=== PATIENT | female | born 1935 | race Caucasian/White ===

== ENCOUNTER 2018-04-13 15:07 | Inpatient (IN) | payer OTHER, BC ==
[~2018-04-13] VITALS: Ht 160 cm; Wt 50.5 kg
[~2018-04-13 15:07] MED LIST: ALBUTEROL SULFAT2 MG PO; ALPRAZOLAM0.25 M2 PO; B-121500 MCG SC; CARAFATE1 GM PO; CIPRO500 MG PO; CYANOCOBAL1000 MCG/2 IM; CYANOCOBALAMIN; DULERA 100 MCG/13 GM IH; FOLIC ACID1 MG PO; FUROSEMIDE40 MG PO; LIPITOR80 MG PO; LOMOTIL TABLET1 EACH PO; METOPROLOL TART50 MG PO; OCEAN NASAL 0.645 ML BOTH NARES; POTASSIUM CHLO10 ME3 PO; PREDNISONE5 MG PO; PROAIR HFA8.5 GM IH; PROTONIX40 MG PO; SUCRALFATE1 GM PO; SYNTHROID50 MCG PO; TRAMADOL HCL50 MG PO
[2018-04-13 16:03] LABS: BASOPHIL (%) 0.4 % (0-1); BASOPHIL COUNT 0.1 K/uL (0-0.1); EOSINOPHIL (%) 0.1 % (0-5); HEMOGLOBIN 7.2 G/DL (11.9-15.5); IMMATURE GRANULOCYTE (%) 0.8 % (0.0-0.7); LYMPHOCYTE COUNT 0.8 K/uL (1.0-2.8); MCH 18.1 PG (29.0-34.0); MCHC 27.7 G/DL (30.0-36.0); MCV 65.5 FL (83-99); MONOCYTE (%) 7.9 % (3-12); MONOCYTE COUNT 1.3 K/uL (0-0.8); NEUTROPHIL (%) 85.8 % (45-76); NEUTROPHIL COUNT 14.3 K/uL (1.8-6.4); PLATELET COUNT 750 K/uL (156-360); RBC DIS.WIDTH-CV 21.1 % (11.8-14.6); RBC DIS.WIDTH-SD 47.2 % (39-53); RED BLOOD COUNT 3.97 M/uL (3.80-5.20); WHITE BLOOD COUNT 16.7 K/uL (4.1-10.2)
[2018-04-13 16:08] LABS: ALBUMIN 3.4 g/dL (3.2-4.8); CHLORIDE 94 mEq/L (99-109); SODIUM 135 mEq/L (136-147)
[2018-04-13 16:09] LABS: PTT 30.8 SEC (25-37)
[2018-04-13 16:11] LABS: GLUCOSE 136 mg/dL (70-99); TOTAL PROTEIN 7.6 g/dL (6.4-8.3)
[2018-04-13 16:13] LABS: TOTAL BILIRUBIN 0.7 mg/dL (0.0-1.0)
[2018-04-13 16:14] LABS: ALKALINE PHOSPHATASE 140 IU/L (3-129)
[2018-04-13 16:15] LABS: GFR ESTIMATE (CALCULATED) 57 mL/min/
[2018-04-13 16:16] LABS: AST (GOT) 18 IU/L (2-34); DIRECT BILIRUBIN 0.4 mg/dL (0.0-0.3); UREA NITROGEN (BUN) 9 mg/dL (9-23)
[2018-04-13 16:17] LABS: ALT (GPT) 10 IU/L (3-49)
[2018-04-13 16:18] LABS: LIPASE 36 U/L (1.0-51.0)
[2018-04-13 16:20] LABS: TROP-I INTERPRETATION NEGATIVE; TROPONIN-I < 0.01 ng/mL (0.0-0.30)
[2018-04-13 16:48] LABS: APPEARANCE CLOUDY ((CLEAR)); BILIRUBIN NEGATIVE; BLOOD MODERATE; COLOR AMBER ((YELLOW)); GLUCOSE (STRIP) NEGATIVE; KETONES NEGATIVE; LEUKOCYTES LARGE; NITRITE POSITIVE; PROTEIN (STRIP) 100; SPECIFIC GRAVITY 1.013 (1.000-1.030); UROBILINOGEN 0.2 MG/DL (0.2-1.0)
[2018-04-13 17:17] LABS: EPITHELIAL CELLS 1+ /HPF; WHITE BLOOD CELLS TNTC /HPF (0-5)
[2018-04-13 17:18] LABS: BACTERIA 3+ /HPF; MUCUS TRACE /LPF; UCUL ADDED? YES
[2018-04-13 19:49] LABS: INTER. NORMALIZED RATIO 2.1
[2018-04-13 20:30] VITALS: BP 135/58
[2018-04-13 23:07] LABS: TROP-I INTERPRETATION NEGATIVE; TROPONIN-I 0.01 ng/mL (0.0-0.30)
[2018-04-14] VITALS (15 sets, daily range): BP systolic 89–125; BP diastolic 43–67
[2018-04-14 07:47] LABS: HEMATOCRIT 20.4 % (36.0-46.0); MCH 18.3 PG (29.0-34.0); RBC DIS.WIDTH-SD 50.6 % (39-53); WHITE BLOOD COUNT 14.4 K/uL (4.1-10.2)
[2018-04-14 07:48] LABS: HEMOGLOBIN 5.5 G/DL (11.9-15.5)
[2018-04-14 07:50] LABS: INTER. NORMALIZED RATIO 1.7
[2018-04-14 07:57] LABS: TROP-I INTERPRETATION NEGATIVE; TROPONIN-I 0.02 ng/mL (0.0-0.30)
[2018-04-14 08:03] LABS: ALBUMIN 2.3 G/DL (3.2-4.8); ALKALINE PHOSPHATASE 90 IU/L (3-129); ALT (GPT) 7 IU/L (3-49); AST (GOT) 12 IU/L (2-34); CHLORIDE 106 MEQ/L (99-109); CREATININE 0.7 MG/DL (0.6-1.3); GFR ESTIMATE (CALCULATED) > 59 mL/min/; GLUCOSE 104 mg/dL (70-99); PLAT.SUFFICIENCY INCREASED; PLATELET CLUMPS PRESENT - PLATELET COUNT APPEARS INCREASED; POTASSIUM 3.5 MEQ/L (3.7-5.4); SODIUM 139 MEQ/L (136-147); TOTAL BILIRUBIN 0.5 MG/DL (0.0-1.0); TOTAL PROTEIN 4.8 G/DL (6.4-8.3); UREA NITROGEN (BUN) 6 mg/dL (9-23)
[2018-04-14 08:10] LABS: PLATELET COUNT UNABLE TO REPORT K/uL (156-360)
[2018-04-14 08:15] LABS: THYROTROPIN (TSH) 1.2 MIU/L (0.4-5.5)
[2018-04-14 08:21] LABS: FERRITIN 29 NG/ML (10-291)
[2018-04-14 08:23] LABS: FOLIC ACID (FOLATE) 17.3 NG/ML (5.0-22.0)
[2018-04-14 09:29] LABS: HEMATOCRIT 22.7 % (36.0-46.0); MCHC 26.4 G/DL (30.0-36.0); RBC DIS.WIDTH-CV 21.4 % (11.8-14.6); RBC DIS.WIDTH-SD 50.9 % (39-53); RED BLOOD COUNT 3.34 M/uL (3.80-5.20); WHITE BLOOD COUNT 16.6 K/uL (4.1-10.2)
[2018-04-14 09:30] LABS: PLATELET COUNT 530 K/uL (156-360)
[2018-04-14 17:54] LABS: HEMATOCRIT 29.4 % (36.0-46.0); HEMOGLOBIN 8.7 G/DL (11.9-15.5); MCH 21.2 PG (29.0-34.0); MCHC 29.6 G/DL (30.0-36.0); MCV 71.5 FL (83-99); NRBC (%) 0.1 /100 WBC (0-0); PLATELET COUNT 533 K/uL (156-360); RBC DIS.WIDTH-SD 58.2 % (39-53); RED BLOOD COUNT 4.11 M/uL (3.80-5.20); WHITE BLOOD COUNT 15.9 K/uL (4.1-10.2)
[2018-04-15 04:53] VITALS: BP 137/62
[2018-04-15 07:29] LABS: INTER. NORMALIZED RATIO 1.3
[2018-04-15 07:30] LABS: BASOPHIL (%) 0.2 % (0-1); EOSINOPHIL (%) 0.8 % (0-5); EOSINOPHIL COUNT 0.1 K/uL (0-0.3); HEMATOCRIT 27.9 % (36.0-46.0); HEMOGLOBIN 8.3 G/DL (11.9-15.5); IMMATURE GRANULOCYTE (%) 0.8 % (0.0-0.7); LYMPHOCYTE (%) 8.4 % (15-42); MCHC 29.7 G/DL (30.0-36.0); MCV 70.6 FL (83-99); MONOCYTE (%) 8.4 % (3-12); NEUTROPHIL (%) 81.4 % (45-76); NEUTROPHIL COUNT 9.6 K/uL (1.8-6.4); RBC DIS.WIDTH-CV 22.6 % (11.8-14.6); RBC DIS.WIDTH-SD 57.1 % (39-53); RED BLOOD COUNT 3.95 M/uL (3.80-5.20); WHITE BLOOD COUNT 11.8 K/uL (4.1-10.2)
[2018-04-15 07:32] LABS: PTT 33.4 SEC (25-37)
[2018-04-15 07:59] LABS: PLATELET CLUMPS PRESENT - PLATELET COUNT APPEARS ADEQUATE; PLATELET COUNT UNABLE TO REPORT K/uL (156-360)
[2018-04-15 08:18] LABS: ALBUMIN 2.2 G/DL (3.2-4.8); CHLORIDE 107 MEQ/L (99-109); CREATININE 0.7 MG/DL (0.6-1.3); GFR ESTIMATE (CALCULATED) > 59 mL/min/; GLUCOSE 124 mg/dL (70-99); PHOSPHORUS 1.9 mg/dL (2.5-4.9); POTASSIUM 3.5 MEQ/L (3.7-5.4); SODIUM 140 MEQ/L (136-147); UREA NITROGEN (BUN) 4 mg/dL (9-23)
[2018-04-15 09:00] VITALS: BP 137/61
[2018-04-15 12:00] VITALS: BP 111/55
[2018-04-15 17:00] VITALS: BP 115/57
[2018-04-15 20:32] VITALS: BP 137/62
[2018-04-15 23:31] VITALS: BP 147/63
[2018-04-16 03:56] VITALS: BP 134/68
[2018-04-16 06:32] LABS: HEMATOCRIT 26.5 % (36.0-46.0); HEMOGLOBIN 7.6 G/DL (11.9-15.5); MCH 20.5 PG (29.0-34.0); MCHC 28.7 G/DL (30.0-36.0); MCV 71.6 FL (83-99); RBC DIS.WIDTH-CV 23.1 % (11.8-14.6); RBC DIS.WIDTH-SD 59.1 % (39-53); WHITE BLOOD COUNT 8.5 K/uL (4.1-10.2)
[2018-04-16 06:58] LABS: CHLORIDE 108 MEQ/L (99-109); CREATININE 0.6 MG/DL (0.6-1.3); GFR ESTIMATE (CALCULATED) > 59 mL/min/; GLUCOSE 118 mg/dL (70-99); POTASSIUM 2.8 MEQ/L (3.7-5.4); SODIUM 143 MEQ/L (136-147); UREA NITROGEN (BUN) 7 mg/dL (9-23)
[2018-04-16 08:18] VITALS: BP 147/66
[2018-04-16 08:58] LABS: PLATELET COUNT 483 K/uL (156-360)
[2018-04-16 11:12] VITALS: BP 123/53
[2018-04-16 13:32] LABS: STOOL OCCULT BLD 1ST SPECIMEN NEGATIVE
[2018-04-16 16:08] VITALS: BP 167/77
[2018-04-16 19:36] VITALS: BP 141/67
[2018-04-17 00:24] VITALS: BP 141/63
[2018-04-17 04:16] VITALS: BP 153/70
[2018-04-17 08:24] VITALS: BP 143/67
[2018-04-17 09:36] LABS: BASOPHIL (%) 0.5 % (0-1); EOSINOPHIL (%) 2.3 % (0-5); EOSINOPHIL COUNT 0.2 K/uL (0-0.3); HEMATOCRIT 30.9 % (36.0-46.0); HEMOGLOBIN 8.9 G/DL (11.9-15.5); IMMATURE GRANULOCYTE (%) 0.5 % (0.0-0.7); LYMPHOCYTE (%) 17.3 % (15-42); LYMPHOCYTE COUNT 1.4 K/uL (1.0-2.8); MCH 20.9 PG (29.0-34.0); MCHC 28.8 G/DL (30.0-36.0); MCV 72.5 FL (83-99); MONOCYTE (%) 7.6 % (3-12); MONOCYTE COUNT 0.6 K/uL (0-0.8); NEUTROPHIL (%) 71.8 % (45-76); NEUTROPHIL COUNT 5.7 K/uL (1.8-6.4); PLATELET COUNT 509 K/uL (156-360); RBC DIS.WIDTH-CV 24.4 % (11.8-14.6); RBC DIS.WIDTH-SD 62.5 % (39-53); RED BLOOD COUNT 4.26 M/uL (3.80-5.20); WHITE BLOOD COUNT 7.9 K/uL (4.1-10.2)
[2018-04-17 10:13] LABS: CHLORIDE 103 MEQ/L (99-109); CREATININE 0.6 MG/DL (0.6-1.3); GFR ESTIMATE (CALCULATED) > 59 mL/min/; POTASSIUM 3.4 MEQ/L (3.7-5.4); SODIUM 146 MEQ/L (136-147); UREA NITROGEN (BUN) 7 mg/dL (9-23)
[2018-04-17 10:19] LABS: GLUCOSE 86 mg/dL (70-99)
[2018-04-17 10:46] VITALS: BP 124/61
[2018-04-17] MEDS ORDERED: LOPRESSOR25 MG PO (11:48)
[2018-04-17] MEDS ORDERED: CEFDINIR300 MG PO (11:48)
[2018-04-17] MEDS ORDERED: TRAMADOL HCL50 MG PO (11:49)
[2018-04-17] MEDS ORDERED: ALPRAZOLAM0.25 M2 PO (11:49)
== END 2018-04-17 15:30 | DRG 872 ==
LOC: EME 15:07 → 2EAST 18:35 → 4EAST 18:35 → EDOF 18:35 → ENRESERV 18:37 → 2EAST 20:05 → ENRESERV 04-14 08:10 → 4EAST 04-14 08:43 → ENPENDDIS 04-17 → 4EAST 04-17 15:30
PROVIDERS: Emergency Medicine; Internal Medicine; Internal Medicine Gastroenterology
PROC: 30233N1 Transfusion of Nonautologous Red Blood Cells into Peripheral Vein, Percutaneous Approach (ICD-10-PCS; principal; 2018-04-14)
DX: A41.51 Sepsis due to Escherichia coli [E. coli] (principal); N39.0 Urinary tract infection, site not specified; D64.9 Anemia, unspecified; F41.9 Anxiety disorder, unspecified; E78.00 Pure hypercholesterolemia, unspecified; E03.9 Hypothyroidism, unspecified; J44.9 Chronic obstructive pulmonary disease, unspecified; R26.9 Unspecified abnormalities of gait and mobility; I10 Essential (primary) hypertension; I48.91 Unspecified atrial fibrillation; K21.0 Gastro-esophageal reflux disease with esophagitis; K29.70 Gastritis, unspecified, without bleeding; E87.2 Acidosis; M32.9 Systemic lupus erythematosus, unspecified; R79.1 Abnormal coagulation profile; R64 Cachexia; M19.90 Unspecified osteoarthritis, unspecified site; R00.0 Tachycardia, unspecified; J98.11 Atelectasis; D50.0 Iron deficiency anemia secondary to blood loss (chronic); K44.9 Diaphragmatic hernia without obstruction or gangrene; E87.6 Hypokalemia; Z90.710 Acquired absence of both cervix and uterus; Z88.2 Allergy status to sulfonamides; Z87.442 Personal history of urinary calculi; Z90.49 Acquired absence of other specified parts of digestive tract; Z93.3 Colostomy status; Z79.01 Long term (current) use of anticoagulants; Z87.11 Personal history of peptic ulcer disease
CPT/HCPCS: 71045; 74177; 80048; 80053; 80069; 80076; 81003; 82272; 82607; 82728; 82746; 83605; 83690; 83735; 83880; 84132 91; 84443; 84484; 85025; 85027; 85610; 85730; 86850; 86900; 86901; 86920; 87040; 87077; 87086; 87186; 87801; 93005; 93306; 94640; 94799; 99281; 99285; J0696; J3480; J7030; J7512; P9016